=== PATIENT | male | born 1985 | race Caucasian/White ===

== ENCOUNTER 2024-10-16 05:48 | Day surgery (SDC) | payer BC ==
[2024-10-16] MEDS ORDERED: Dextrose 5%-0.45% NaCl 1,000 ML IV ONE (05:49)
[2024-10-16] MEDS ORDERED: Propofol 200 MG/20 ML SDV IV ONE (05:49)
[2024-10-16] MEDS ORDERED: Lactated Ringers 500 ML IV ONE (05:49)
[2024-10-16] MEDS ORDERED: Lidocaine 2% 20 ML MDV NERVRT ONE (05:49)
[2024-10-16] MEDS ORDERED: Dextrose 5%-0.45% NaCl 1,000 ML IV SCH (06:00)
[2024-10-16] MEDS: Lactated Ringers 1,000 ML IV SCH (06:19)
[2024-10-16] MEDS ORDERED: Propofol 200 MG/20 ML SDV ONE (07:02)
== END 2024-10-16 08:46 | disposition home or self-care (01) ==
LOC: DL.ENDO 05:48
PROVIDERS: ATTEND Internal Medicine Gastroenterology
DX: K21.9 Gastro-esophageal reflux disease without esophagitis (principal); K52.9 Noninfective gastroenteritis and colitis, unspecified; Z80.0 Family history of malignant neoplasm of digestive organs
CPT/HCPCS: 43239; J2003; J2704; J7120; S5010; 00731

== ENCOUNTER 2024-10-27 05:23 | Day surgery (SDC) | payer BC ==
[2024-10-27] MEDS ORDERED: Propofol 200 MG/20 ML SDV IV ONE (05:24)
[2024-10-27] MEDS ORDERED: Lactated Ringers 1,000 ML IV ONE (05:24)
[2024-10-27] MEDS: Lactated Ringers 1,000 ML IV SCH (05:54)
[2024-10-27] MEDS ORDERED: Propofol 200 MG/20 ML SDV ONE ×2 (05:56→09:08)
== END 2024-10-27 08:17 | disposition home or self-care (01) ==
LOC: DL.ENDO 05:23
PROVIDERS: ATTEND Internal Medicine Gastroenterology
DX: K52.9 Noninfective gastroenteritis and colitis, unspecified (principal); K21.9 Gastro-esophageal reflux disease without esophagitis; F41.8 Other specified anxiety disorders; Z79.899 Other long term (current) drug therapy
CPT/HCPCS: 00811; J2704; J7120